=== PATIENT | female | born 1945 | race Caucasian/White ===

== ENCOUNTER 2019-04-23 09:43 | Emergency (ER) | payer MEDICARE ==
[2019-04-23] MEDS ORDERED: MORPHINE SULFATE 2 MG/ML SYRINGE IM STA (10:09)
[2019-04-23] MEDS ORDERED: ONDANSETRON ODT 4 MG TAB PO STA (10:09)
--- NOTE | 2019-04-23 10:32 | ED ---
General Adult HPI - General Chief complaint: Extremity Injury, Upper Stated complaint: Fall-lt shoulder injury Time Seen by Provider: 04/23/19 09:59 Source: patient, family, RN notes reviewed, old records reviewed Mode of arrival: ambulatory Limitations: no limitations - History of Present Illness Initial comments: 74-year-old female patient past history of stroke in 2005 wrist ED after falling tonight. Patient does report that she had a head trauma without any loss of consciousness, small abrasion noted on forehead region. Also complaining of left shoulder pain. No blood thinners. Denies any other complaints at this time. Ambulatory without difficulty. Systemic: Pt denies fatigue, fever/chills, rash. Pt denies weakness, night sweats, weight loss. Neuro: Pt denies headache, visual disturbances, syncope or pre-syncope. HEENT: Pt denies ocular discharge or irritation, otalgia, rhinorrhea, pharyngitis or notable lymphadenopathy. Cardiopulmonary: Pt denies chest pain, SOB, heart palpitations, dyspnea on exertion. Abdominal/GI: Pt denies abdominal pain, n/v/d. : Pt denies dysuria, burning w/ urination, frequency/urgency. Denies new onset urinary or bowel incontinence. MSK: Pt denies myalgia, loss of strength or function in extremities. Neuro: Pt denies new onset weakness, paresthesias. - Related Data Home Medications Medication Instructions Recorded Confirmed Aspirin EC [Ecotrin Low Dose] 81 mg PO DAILY 04/23/19 04/23/19 Atorvastatin [Lipitor] 10 mg PO DAILY 04/23/19 04/23/19 Metoprolol Tartrate [Lopressor] 50 mg PO DAILY 04/23/19 04/23/19 Allergies Allergy/AdvReac Type Severity Reaction Status Date / Time aspirin Allergy Rash/Hives Verified 04/23/19 10:04 shellfish derived [Shellfish] Allergy Rash/Hives Verified 04/23/19 10:04 Review of Systems ROS Statement: Those systems with pertinent positive or pertinent negative responses have been documented in the HPI. ROS Other: All systems not noted in ROS Statement are negative. Past Medical History Past Medical History: CVA/TIA Additional Past Medical History / Comment(s): hemorrhagic stroke 2005 History of Any Multi-Drug Resistant Organisms: None Reported Past Surgical History: Appendectomy, Hysterectomy, Tonsillectomy Past Psychological History: No Psychological Hx Reported Smoking Status: Never smoker Past Alcohol Use History: Occasional Past Drug Use History: None Reported General Exam - General Exam Comments Initial Comments: Constitutional: NAD, AOX3, Pt has pleasant affect. HEENT: NC/AT, trachea midline, neck supple, no lymphadenopathy. Posterior pharynx non erythematous, without exudates. External ears appear normal, without discharge. Mucous membranes moist. Eyes PERRLA, EOM intact. There is no scleral icterus. No pallor noted. Cardiopulmonary: RRR, no murmurs, rubs or gallops, no JVD noted. Lungs CTAB in anterior and posterior hou. No peripheral edema. Abdominal exam: Abdomen soft and non-distended. Abdomen non-tender to palpation in all 4 quadrants. Bowel sounds active in LLQ. No hepatosplenomegaly. No ecchymosis Neuro: CN II-XII intact. No nuchal rigidity. No raccon eyes, no manjarrez sign, no hemotympanum. No cervical spinal tenderness. NIH 0. MSK: Small ecchymoses noted at left acromioclavicular joint, tender to palpation. Range of motion of left upper extremity limited. No posterior calf tenderness bilaterally, homans sign negative bilaterally. Posterior tibialis and radial pulse +2 bilaterally. Sensation intact in upper and lower extremities. Full active ROM in lower extremities, 5/5 stregnth. Limitations: no limitations Course Vital Signs 04/23/19 09:53 Temperature 98.1 F Pulse Rate 73 Respiratory 16 Rate Blood Pressure 138/66 O2 Sat by Pulse 98 Oximetry Medical Decision Making - Medical Decision Making 74-year-old female patient past history of stroke in 2005 presents to ED after falling tonight. Patient does report that she had a head trauma without any loss of consciousness, small abrasion noted on forehead region. Also complaining of left shoulder pain. No blood thinners. Denies any other complaints at this time. Ambulatory without difficulty. Patient vital signs stable, afebrile. Physical exam displayed: Small ecchymoses noted at left acromioclavicular joint, tender to palpation. CN II-XII intact. No nuchal rigidity. No raccon eyes, no manjarrez sign, no hemotympanum. No cervical spinal tenderness. But from shoulder displayed acute comminuted distal clavicular fracture. He to present to spine displayed punctuate focal area of intraparenchymal hemorrhage at the superior frontal lobe with surrounding low- attenuation. Patient placed in sling. Mild transfer delay due to imaging being reviewed by multiple radiologists. Patient transferred to [facility]. Accepting physician Dr. King. Case discussed with Dr. Alexis. Disposition Clinical Impression: Clavicle fracture, Intraparenchymal hemorrhage of brain Disposition: OTHER INSTITUTION NOT DEFINED Condition: Stable Is patient prescribed a controlled substance at d/c from ED?: No Referrals: Alfredo Wells MD [Primary Care Provider] - 1-2 days - Out of Hospital Transfer - Req. Specs Out of Hospital Transfer - Requested Specifics: Other Emergency Center ([facility])
--- NOTE | 2019-04-23 10:57 | XR ---
EXAMINATION TYPE: XR chest 1V DATE OF EXAM: 04/23/2019 COMPARISON: NONE HISTORY: Left clavicle pain and bruising with limited range of motion of the left shoulder TECHNIQUE: Single frontal view of the chest is obtained. FINDINGS: Nodular densities overlying the lower lobes appear as nipple shadows. There are strand-lik e bibasilar subsegmental atelectasis. No pneumothorax or focal consolidation. Cardiomediastinal silho uette is within normal limits. There is a comminuted fracture of the distal left clavicle with coraco clavicular joint space widening. The acromioclavicular joint space appears intact. IMPRESSION: Comminuted left distal clavicular fracture and increased coracoclavicular interval sugge sting coracoclavicular ligament tear. Minimal bibasilar subsegmental atelectasis.
--- NOTE | 2019-04-23 11:08 | XR ---
EXAMINATION TYPE: XR shoulder complete LT DATE OF EXAM: 04/23/2019 COMPARISON: NONE HISTORY: Left shoulder pain after injury TECHNIQUE: 2 views of the left glenohumeral joint were obtained. FINDINGS: There is a comminuted left distal clavicular fracture with 3 large fragments and multiple p unctate fragments 2 of which overlie the left lung apex. There is overlying soft tissue swelling. The re is foreshortening in total of 4.6 cm and increased distance of the normal coracoclavicular interva l. There is displacement inferiorly of the distal fracture fragments. No acute fracture or dislocatio n of the left glenohumeral joint. IMPRESSION: There is and acute comminuted, foreshortened left distal clavicular fracture with the dis marie fragments displaced inferiorly and elevation the proximal clavicle. There is also coracoclavicula r ligamentous widening suggesting injury or tear. Punctate densities overlying the left lung apex may be additional displaced comminuted fragments.
--- NOTE | 2019-04-23 11:11 | CT ---
EXAMINATION TYPE: CT brain cspine wo con DATE OF EXAM: 04/23/2019 COMPARISON: None HISTORY: Fall, pain CT DLP: 1254.9 mGycm Automated exposure control for dose reduction was used. TECHNIQUE: CT scan of the head and cervical spine are performed without contrast. FINDINGS: Focal area of hyperattenuation in the subcortical white matter of the superior right fron marie lobe on image 36 with surrounding low attenuation. The low-attenuation appears to extend from the anterior horn of the right lateral ventricle. Additional focal area of subcortical hypoattenuation i s seen in the left inferior and anterior left parietal lobe. Scattered areas of low-attenuation in th e periventricular and subcortical white matter. The ventricles and sulci are within normal limits in size. The globes are intact and the visualized sinuses are clear. Cervical spine is visualized in its entirety from C1 through upper thoracic levels and demonstrates s atisfactory alignment without evidence of acute fracture or dislocation. Prevertebral soft tissue ap pears within normal limits. The C1-C2 articulation is unremarkable. Disc space narrowing at C5-6 and C6-7 with anterior-posterior osteophytes. Minimal anterolisthesis of C7 on T1. Partially visualized nondisplaced left clavicle fracture with surrounding edema and inflammation. Mild pleural and parenchymal scarring in the lung apices. IMPRESSION: Punctate focal area of intraparenchymal hemorrhage at the superior right frontal lobe with surroundin g low attenuation. Differential for these findings include small contrecoup hemorrhage from trauma or small infarct with hemorrhagic transformation. Additional low-attenuation area in the left parietal lobe may be related to additional area of infarct. Further evaluation may be obtained with MRI of the brain without contrast. No acute fracture or dislocation of the cervical spine. Partially visualized left clavicle fracture. These findings were discussed with Dr. Puente by Dr. Pagan at 1108 hours on 04/23/2018
[2019-04-23] MEDS ORDERED: MORPHINE SULFATE 4 MG/ML SYRINGE IVP STA (12:31)
[2019-04-23 12:39] VITALS: PULSE 71; RESP 18
[2019-04-23] MEDS ORDERED: ONDANSETRON 4 MG/2 ML VIAL IVP STA (13:15)
[2019-04-23 13:18] VITALS: BP 137/56; TEMP 97.4
== END 2019-04-23 13:24 | disposition short-term general hospital (02) ==
LOC: EC 09:43
DX: S42.032A Displaced fracture of lateral end of left clavicle, initial encounter for closed fracture (principal); S06.360A Traumatic hemorrhage of cerebrum, unspecified, without loss of consciousness, initial encounter; Z88.6 Allergy status to analgesic agent; Z91.013 Allergy to seafood; Z79.82 Long term (current) use of aspirin; Z79.899 Other long term (current) drug therapy; Z86.73 Personal history of transient ischemic attack (TIA), and cerebral infarction without residual deficits; W19.XXXA Unspecified fall, initial encounter
CPT/HCPCS: 73030; 71045; 72125; 70450; 99285; 96374; 96375; 96372; J2270 ×2; J2405